=== PATIENT | female | born 2000 | race American Indian/Alaskan Native ===

== ENCOUNTER 2020-12-10 09:34 | Emergency (ER) | payer MEDICAID, OTHER ==
[2020-12-10] MEDS ORDERED: Ibuprofen 600 MG Tab PO ONE (10:11)
--- NOTE | 2020-12-10 10:16 | EDM.PDOC ---
ED HPI GENERAL MEDICAL PROBLEM - General Chief Complaint: Back Pain or Injury Stated Complaint: PAIN IN BACK Time Seen by Provider: 12/10/20 10:11 Source of Information: Reports: Patient History Limitations: Reports: No Limitations - History of Present Illness INITIAL COMMENTS - FREE TEXT/NARRATIVE: Patient comes emergency department today from home with complaints of upper mid back pain. This patient about a 1.5 weeks ago was moving quite a bit of heavy furniture. Since that time she has had recurring intermittent mid upper back pain. Primarily gets worse in the morning after sleeping. Her pain is worse with movement. She has had no recent falls or trauma. She has no chest pain no shortness of breath or difficulty breathing. No cough or congestion. No fever no chills. No weakness dizziness lightheadedness. No palpitations. No abdominal pain nausea vomiting. No flank pain. No hematuria dysuria urinary frequency. No black or tarry stools. She has no paresthesias of her upper or lower extremities. No change in her bowel or bladder. No change in the functionality of her upper or lower extremities. She has not tried anything for the pain other than smoking a "joint of marijuana" this morning. She has not tried anything [id number]. She comes emergency department because she is getting tired of the pain that is bothering her. No Covid exposure no Covid symptoms. Back Pain Score (Numeric/FACES): 5 - Related Data Allergies Allergy/AdvReac Type Severity Reaction Status Date / Time No Known Allergies Allergy Verified 12/10/20 10:07 Home Meds: Home Meds . [No Known Home Meds] 12/10/20 [History] Past Medical History - Past Health History Medical/Surgical History: Denies Medical/Surgical History Social & Family History - Tobacco Use Tobacco Use Status *Q: Current Status Unknown - Caffeine Use Caffeine Use: Reports: Energy Drinks, Soda - Recreational Drug Use Recreational Drug Use: Yes Recreational Drug Type: Reports: Marijuana/Hashish ED ROS GENERAL - Review of Systems Review Of Systems: Comprehensive ROS is negative, except as noted in HPI. ED EXAM, UPPER BACK/NECK PAIN - Physical Exam Exam: See Below Exam Limited By: No Limitations General Appearance: Alert, WD/WN, No Apparent Distress, Obese (morbidly) Head Exam: Atraumatic, Normocephalic Neck Exam: Non-Tender, Full Range of Motion, Normal Alignment, Normal Inspection Cardiovascular/Respiratory: Regular Rate, Rhythm, No M/R/G, Normal Peripheral Pulses, Normal Breath Sounds, No Respiratory Distress GI/Abdominal: Normal Bowel Sounds, Soft, Non-Tender, Pelvis Stable (Female) Exam: Deferred Rectal (Female) Exam: Deferred Back Exam: Normal Inspection, Full Range of Motion, Other (No rash sores or lesions. ). No: CVA Tenderness (L), CVA Tenderness (R), Decreased Range of Motion, Paraspinal Tenderness, Vertebral Tenderness Extremities: Normal Inspection, Normal Range of Motion, Non-Tender, No Pedal Edema, Normal Capillary Refill Neurologic: step down nurse II-XII nml As Tested, Normal Mood/Affect DTR: 2+: Bicep (R), Bicep (L), Tricep (R), Tricep (L), Patella (R), Patella (L), Achilles (R), Achilles (L) Psychiatric: Normal Affect, Normal Mood Skin Exam: Normal Color, Warm/Dry Lymphatic: No Adenopathy Course - Vital Signs Last Recorded V/S: Last Vital Signs Temp 97.7 F 12/10/20 09:56 Pulse 89 12/10/20 09:56 Resp 14 12/10/20 09:56 BP 143/85 H 12/10/20 09:56 Pulse Ox 96 12/10/20 09:56 - Orders/Labs/Meds Meds: Medications Discontinued Medications Generic Name Dose Route Start Last Admin Trade Name Shayy PRN Reason Stop Dose Admin Ibuprofen 600 mg 12/10/20 10:11 Ibuprofen 600 Mg Tab PO 12/10/20 10:12 ONETIME ONE Departure - Departure Time of Disposition: 10:11 Disposition: Home, Self-Care 01 Clinical Impression: Back pain Qualifiers: Back pain location: thoracic back pain Chronicity: acute Back pain laterality: midline Qualified Code(s): M54.6 - Pain in thoracic spine - Discharge Information Instructions: Acute Back Pain, Adult, Muscle Strain, [id number], Pain Medicine Instructions, [id number] Forms: ED Department Discharge Additional Instructions: Tylenol and or Ibuprofen as needed for pain. Heat or ice to the area of concern which ever works best for you. Keep mobile and don't be surprised if in the morning when you wake up you will be a little more sore and stiff after sleeping. Flexeril, 1 tablet three times a day as needed for back pain spasms. Caution sedation. RX given to the patient #9. No Refills. Return to the ED if new or worsening symptoms. Follow up with PCP in the next week if not improving sooner if worse. Consider physical therapy at any time. Sepsis Event Note (ED) - Evaluation Sepsis Screening Result: No Definite Risk - Focused Exam Vital Signs: Vital Signs Temp Pulse Resp BP Pulse Ox 12/10/20 09:56 97.7 F 89 14 143/85 H 96
== END 2020-12-10 10:44 | disposition home or self-care (01) ==
LOC: DL.ED 09:34
DX: M54.6 Pain in thoracic spine (principal)
CPT/HCPCS: 99283

== ENCOUNTER 2021-07-05 16:13 | Emergency (ER) | payer SELFPAY | END 2021-07-05 18:08 | disposition left against medical advice (07) | LOC: DL.ED 16:13 | DX: Z53.21 Procedure and treatment not carried out due to patient leaving prior to being seen by health care provider (principal) ==

== ENCOUNTER 2021-07-05 23:27 | Emergency (ER) | payer SELFPAY ==
[2021-07-05] MEDS ORDERED: Ketorolac 30 MG/ML SDV IVPUSH ONE (23:43)
[2021-07-05] MEDS ORDERED: Ondansetron 4 MG/2 ML SDV IVPUSH ONE (23:43)
[2021-07-06 00:03] LABS: CORONAVIRUS COVID-19 NAA NEGATIVE (NEGATIVE)
[2021-07-06] MEDS ORDERED: Amoxicillin 500 MG Cap PO ONE (00:26)
== END 2021-07-06 00:42 | disposition home or self-care (01) ==
LOC: DL.ED 23:27
DX: J10.83 Influenza due to other identified influenza virus with otitis media (principal); Z20.822 Contact with and (suspected) exposure to COVID-19
CPT/HCPCS: 0240U; 96374; 96375; 99284; A9270; J1885; J2405